=== PATIENT | female | born 1960 ===

== ENCOUNTER 2021-08-05 10:30 | Inpatient (IN) | payer OTHER ==
[~2021-08-05] VITALS: Ht 157.5 cm; Wt 74.8 kg
[2021-08-05] MEDS ORDERED: CRESTOR5 MG PO (15:32)
[2021-08-05] MEDS ORDERED: PREMARIN0.45 MG PO (15:33)
[2021-08-11] MEDS ORDERED: ESTR0.624 (10:52)
[2021-08-14] MEDS ORDERED: SIMETHICONE125 M1 PO (12:02)
[2021-08-14] MEDS ORDERED: HYOSCYAMINE0.125 M1 SL (12:02)
[2021-08-14] MEDS ORDERED: INTESTINEX680 M1 PO (12:02)
[2021-08-14] MEDS ORDERED: TRAMADOL HCL50 MG PO (12:03)
== END 2021-08-14 13:58 | disposition home or self-care (01) | DRG 330 ==
LOC: SURG 08-11 07:00 → O/R 08-11 07:54 → SURH 08-11 07:54 → SURG 08-11 12:45 → SURH 08-11 14:40
PROVIDERS: ADMIT Colon & Rectal Surgery; ATTEND Colon & Rectal Surgery
PROC: 0DBN4ZZ Excision of Sigmoid Colon, Percutaneous Endoscopic Approach (ICD-10-PCS; 2021-08-11)
PROC: 3E0F7SF Introduction of Other Gas into Respiratory Tract, Via Natural or Artificial Opening (ICD-10-PCS; 2021-08-11)
PROC: 0DBP4ZZ Excision of Rectum, Percutaneous Endoscopic Approach (ICD-10-PCS; principal; 2021-08-11 07:00)
DX: K57.32 Diverticulitis of large intestine without perforation or abscess without bleeding (principal); K59.2 Neurogenic bowel, not elsewhere classified; E78.00 Pure hypercholesterolemia, unspecified; K76.0 Fatty (change of) liver, not elsewhere classified; K66.0 Peritoneal adhesions (postprocedural) (postinfection)